=== PATIENT | male | born 1975 | race Caucasian/White ===

== ENCOUNTER → 2018-05-19 17:07 | Outpatient (CLI) | payer OTHER, SELFPAY ==
--- NOTE | 2018-05-19 17:08 | DI.MRI.S_ITS ---
PROCEDURE: MR CERVICAL SPINE WO CON INDICATIONS: OTHER CERVICAL DISC DISPLACEMENT, UNSPECIFIED CERV TECHNIQUE: Noncontrast sagittal T1 spin echo and T2 fast spin echo, sagittal STIR, foraminal oblique sagittal T2 fast spin echo, and axial gradient echo or T2 fast spin echo through the cervical spine. COMPARISON: [facility] Outside Film, RG, SPINE CERVICAL 2 OR 3VW, 09/12/2017, 11:39. FINDINGS: Image quality: Excellent. Alignment and Curvature: There is loss of normal cervical lordosis. There is mild, grade 1 retrolisthesis of C4 on C5, C5 on C6, and C6 on C7. Bone Marrow: Marrow demonstrates normal overall signal. There is moderate reactive signal within the endplates adjacent to the C5-C6 and C6-C7 intervertebral discs. Spinal Cord: Visualized spinal cord has normal size and signal. No cerebellar tonsillar herniation. Paraspinous Soft Tissues: No paravertebral masses. Prevertebral soft tissues are normal in thickness. C2-C3: Congenital canal stenosis. Mild bilateral facet hypertrophy. Mild canal stenosis. Mild left foraminal stenosis. No right foraminal stenosis. C3-C4: Congenital canal stenosis. Mild bilateral facet and uncovertebral hypertrophy. Overall moderate canal stenosis. Mild bilateral foraminal stenosis. C4-C5: Congenital canal stenosis. Mild disc loss and desiccation. Mild diffuse disc bulge. Mild bilateral facet hypertrophy. Overall severe canal stenosis with moderate cord flattening. Mild bilateral foraminal stenosis. C5-C6: Congenital canal stenosis. Moderate disc I. loss and desiccation. Mild diffuse disc bulge with superimposed broad-based left far lateral protrusion. Moderate bilateral facet and uncovertebral hypertrophy. Severe canal stenosis. Moderate cord flattening. Severe bilateral foraminal stenosis with bilateral C6 nerve root flattening. C6-C7: Congenital canal stenosis. Moderate disc height loss and desiccation. Moderate diffuse disc bulge. Mild bilateral facet and uncovertebral hypertrophy. Severe canal stenosis. Moderate cord flattening. Moderate foraminal stenosis bilaterally. C7-T1: Congenital canal stenosis. Overall mild canal stenosis. No foraminal stenosis. IMPRESSION: 1. Diffuse congenital canal stenosis, with superimposed disc and facet disease, as well as uncovertebral hypertrophy. 2. Multilevel canal stenoses, with associated cord flattening at C4-C5, C5-C6, and C6-C7. 3. Multilevel foraminal stenoses, worst at C5-C6 bilaterally, where there is bilateral intraforaminal C6 neural flattening. Recommend correlation with clinical symptoms to ascertain relevance of this finding. Dictated by: Margo Erickson M.D. on 05/20/2018 at 9:24 Approved by: Margo Erickson M.D. on 05/20/2018 at 9:28
== END ==
PROVIDERS: Visit Provider Physical Medicine & Rehabilitation
DX: M50.221 Other cervical disc displacement at C4-C5 level (principal); M48.02 Spinal stenosis, cervical region
CPT/HCPCS: 72141

== ENCOUNTER 2022-05-15 19:43 | Inpatient (IN) | payer OTHER, SELFPAY ==
[2022-05-15] VITALS (13 sets, daily range): BP systolic 138–153; BP diastolic 82–88; PULSE 85–98; RESP 13–43; TEMP 35.7; O2SAT 96–99; BMI 30.5
[2022-05-15] MEDS: EPINEPHrine 1 MG/ML 0.5 MG IM ×2 (20:05→21:19)
[2022-05-15] MEDS: diphenhydrAMINE 50 MG/ML VIAL 25 MG IV (20:06)
[2022-05-15] MEDS: FAMOTIDINE 20 MG/2 ML VIAL IV (20:08)
[2022-05-15] MEDS: DEXAMETHASONE 10 MG/ML VIAL IV (20:08)
--- NOTE | 2022-05-15 20:59 | ED.ALLEREA ---
HPI - Allergic Reaction General Chief complaint: Allergic Reaction Stated complaint: allergic reaction throat is swollen Time Seen by Provider: 05/15/22 19:59 Source: patient Mode of arrival: Ambulatory History of Present Illness HPI narrative: 47-year-old male nonsmoker with history of eosinophilic esophagitis and prior allergic reactions presents with his in the chief complaint of difficulty breathing and a fullness or swelling sensation in his throat for about the past 1/2 hour or so. He denies any exposure to new foods, lotions, since or other. He has no rash. He is nauseated but denies any vomiting and has no abdominal pain or diarrhea. He took no medications prior to coming Related Data Allergies Allergy/AdvReac Type Severity Reaction Status Date / Time No Known Drug Allergies Allergy Verified 05/15/22 20:14 Review of Systems Review of Systems Narrative: GENERAL: Denies chills, fatigue, malaise, fever, sweats. HEENT: See HPI RESPIRATORY: See HPI CARDIOVASCULAR: Denies chest pain, palpitations, orthopnea, edema, GASTROINTESTINAL: Denies nausea, vomiting, abdominal pain, diarrhea, constipation, melena. : Denies dysuria, frequency, incontinence, hematuria, urinary retention. MUSCULOSKELETAL: denies weakness, joint pain, or bony pain SKIN: Denies rash, skin lesions, or other NEUROLOGIC: Denies weakness, headache, numbness, change in speech, confusion, seizures, incoordination. PSYCHIATRIC: No concerning psychosocial issues. 12 point review of systems is negative except for those stated above Patient History Social History Smoking Status: Never smoker Smoking Status: Never smoker alcohol intake frequency: holidays/special occasions only Substance Use Type: does not use Exam Narrative Exam Narrative: GENERAL: [47] year old patient appears stated age. Well-developed patient, in mild distress. Obviously uncomfortable, standing upright and pacing a bit holding an emesis bag HEAD: Atraumatic. Normocephalic. EYES: Pupils equal round and reactive. Extraocular motions intact. No scleral icterus. No injection or drainage. ENT: Nose without bleeding, purulent drainage. Throat without erythema, tonsillar hypertrophy or exudate. Airway patent. NECK: Trachea midline. Non tender CARDIOVASCULAR: Regular rate and rhythm without murmurs, gallops, or rubs. RESPIRATORY: Clear to auscultation. Breath sounds equal bilaterally. No wheezes, rales, or rhonchi. GASTROINTESTINAL: Abdomen soft, non-tender, nondistended. EXTREMITIES: No edema or joint tenderness. BACK: Nontender without deformity or crepitance. No flank tenderness. NEURO: AOx3. SKIN: No rash or erythema of visible areas Initial Vital Signs Initial Vital Signs: Vital Signs Temperature 96.3 F L 05/15/22 19:46 Pulse Rate 98 H 05/15/22 19:46 Respiratory Rate 18 05/15/22 19:46 Blood Pressure 138/84 05/15/22 19:46 Pulse Oximetry 98 05/15/22 19:46 Oxygen Delivery Method 05/15/22 19:46 Course Orders Ordered: ED Orders 05/16/22 00:27 CT soft tissue neck w con Stat 05/16/22 00:37 BMP [Basic Metabolic Panel] Stat CBC Auto Diff [Complete Blood Count AUTO DIFF] Stat 05/16/22 01:52 COVID19 -Nasal RAPID/Pre-Proc Stat Famotidine (Famotidine 20 Mg/2 Ml Vial) 20 mg IV NOW DENISE Last Admin: 05/15/22 20:08 Dose: 20 mg Documented By: ESEQUIEL Discontinued Medications Dexamethasone (Dexamethasone 10 Mg/Ml Vial) 10 mg IV NOW ONE Stop: 05/15/22 20:00 Last Admin: 05/15/22 20:08 Dose: 10 mg Documented By: ESEQUIEL Diphenhydramine HCl (Diphenhydramine 50 Mg/Ml Vial) 25 mg IV NOW ONE Stop: 05/15/22 20:00 Last Admin: 05/15/22 20:06 Dose: 25 mg Documented By: ESEQUIEL Epinephrine HCl (Epinephrine 1 Mg/Ml) 0.5 mg IM NOW ONE Stop: 05/15/22 20:00 Last Admin: 05/15/22 20:05 Dose: 0.5 mg Documented By: ESEQUIEL Epinephrine HCl (Epinephrine 1 Mg/Ml) 0.5 mg IM NOW ONE Stop: 05/15/22 21:12 Last Admin: 05/15/22 21:19 Dose: 0.5 mg Documented By: ESEQUIEL Ondansetron HCl (Ondansetron 4 Mg/2 Ml Inj) 4 mg IV NOW ONE Stop: 05/15/22 20:58 Last Admin: 05/15/22 21:01 Dose: 4 mg Documented By: ESEQUIEL Reevaluation(s) Reevaluation #1: improved, but still uncomfortable Time: 21:02 Reevaluation #2: After all above-stated therapies patient still unable to get any liquids down, attempts made and within a few minutes it comes back up. He continues to deny any likely esophageal foreign body Consultations Consultation #1: Dr. Mcknight Vital Signs Vital signs: Vital Signs - 8 hr 05/15/22 19:46 05/15/22 20:14 05/15/22 20:29 Temperature 96.3 F L Pulse Rate 98 H 91 H 85 Respiratory Rate 18 16 16 Blood Pressure 138/84 153/82 H Pulse Oximetry 98 97 96 Oxygen Delivery Method Room Air Room Air Room Air 05/15/22 23:40 05/16/22 00:12 Temperature Pulse Rate 92 H 91 H Respiratory Rate 16 16 Blood Pressure 149/88 H 153/82 H Pulse Oximetry 97 98 Oxygen Delivery Method Room Air Room Air MDM - Allergic Reaction Lab Data Result diagrams: 05/16/22 00:37 05/16/22 00:37 Labs: Lab Results 05/16/22 05/16/22 05/16/22 Range/Units 00:37 00:37 02:03 WBC 9.3 (4.5-11.0) X10^3/uL RBC 4.66 (4.5-5.9) X10^6/uL Hgb 14.1 (13.5-17.5) g/dL Hct 41.5 (41-53) % MCV 89.1 (80-100) fL MCH 30.2 (26-34) PG MCHC 33.9 (30-36) % RDW 13.1 (11.6-14.8) % Plt Count 237 (150-400) X10^3/uL Neut % (Auto) 95.1 H (50-75) % Lymph % (Auto) 3.7 L (25-40) % [place] % (Auto) 0.3 L (3-14) % Eos % (Auto) 0.1 L (2-4) % Baso % (Auto) 0.8 (0-2) % Neut # (Auto) 8800 H (4430-0605) /uL Lymph # (Auto) 300 L (1468-0844) /uL [place] # (Auto) 0 (0-900) /uL Eos # (Auto) 0 (0-450) /uL Baso # (Auto) 100 (0-100) /uL Sodium 141 (137-145) mmol/L Potassium 3.9 (3.4-5.1) mmol/L Chloride 110 H (98-107) mmol/L Carbon Dioxide 23 (22-32) mmol/L BUN 12 (9-20) mg/dL Creatinine 0.84 (0.66-1.25) mg/dL Estimated GFR > 60 (>60) mL/min BUN/Creatinine Ratio 14.3 (6-22) Glucose 143 H (70-100) mg/dL Calcium 7.8 L (8.4-10.2) mg/dL SARS-CoV-2 (PCR) Negative (Negative) Imaging Data CT Soft Tissue Neck: Radiologist's Impression: Close Soft Tissue Neck CT (Signed) Mani Martini - 05/16/22 [place] [address] CT Scan Report Signed Patient: Kashif Smith MR#: [id number] : 1975 Acct:[id number] Age/Sex: 47 / M Date of Service: 05/16/22 Loc: ED Accession Number: [id number] ?? Procedure: CT soft tissue neck w con Ordering Provider: Bereket Asif D.O. PROCEDURE:? CT SOFT TISSUE NECK W CON ? INDICATIONS:? unable to swallow ? TECHNIQUE:? After the administration of intravenous contrast, 3.0 mm axial sections acquired from the sella to the aortic arch.? Additional oblique axial 3.0 mm sections acquired through the pharynx.? 3 mm thick coronal and sagittal reformats were generated.? For radiation dose reduction, the following was used:? automated exposure control.? ? COMPARISON:? [facility], MR, MR CERVICAL SPINE WO CON, 05/19/2018, 17:15. ? FINDINGS:? Image quality:? Excellent.? ? Lymph nodes:? No enlarged lymph nodes seen throughout the neck.? ? Vessels:? Visualized vasculature appears patent.? ? Neck spaces:? The oropharynx, nasopharynx, and pharynx demonstrate no mucosal mass lesions.? There is mild concentric mucosal thickening within the oropharynx.? There is slight enlargement of the tonsils and adenoids.? No discrete abscess collection.? The vocal cords, false vocal cords, pyriform sinuses, epiglottis, vallecula, and tongue base all appear normal.? Extramucosal spaces appear unremarkable.? ? Glands:? The parotid and submandibular glands appear normal.? Thyroid gland demonstrates no discrete nodules. ? Miscellaneous:? Visualized brain and orbits appear normal.? Lung apices appear clear.? Superficial soft tissues appear normal. ? Bones:? No suspicious bony lesions.? There is straightening of the cervical lordosis.? Mild to moderate degenerative disc disease demonstrated within the lower cervical spine.? Visualized sinuses and mastoids appear unremarkable.? ? ? IMPRESSION:? ? 1. Mild concentric mucosal thickening within the oropharynx without a discrete abscess collection or mass. ? ? ? Dictated by: Mani Martini M.D. on 05/16/2022 at 1:38 ? ? Approved by: Mani Martini M.D. on 05/16/2022 at 1:42 ? MDM Narrative Medical decision making narrative: Despite above stated therapies patient is still unable to tolerate any oral hydration attempts at even small sips of water come back up. He is unable to be discharged given the circumstances and will require hospitalization for further evaluation and treatment. Discharge Plan Departure Patient Disposition: Admitted as Observation Clinical Impression: Esophagitis Admit Date/Time: 05/16/22 02:19 Admit Provider: Dasha Tobias
[2022-05-15] MEDS: ONDANSETRON 4 MG/2 ML INJ IV (21:01)
[2022-05-15] MEDS: BUDESONIDE 0.5 MG/2 ML NEB 2 MG INH (22:59)
[2022-05-15] MEDS: BUDESONIDE 0.5 MG/2 ML NEB 1 MG INH (22:59)
[2022-05-16] VITALS (14 sets, daily range): BP systolic 116–153; BP diastolic 59–82; PULSE 79–97; RESP 10–31; TEMP 36.6–36.9; O2SAT 94–98; BMI 29.0
--- NOTE | 2022-05-16 00:27 | DI.CT.S_ITS ---
PROCEDURE: CT SOFT TISSUE NECK W CON INDICATIONS: unable to swallow TECHNIQUE: After the administration of intravenous contrast, 3.0 mm axial sections acquired from the sella to the aortic arch. Additional oblique axial 3.0 mm sections acquired through the pharynx. 3 mm thick coronal and sagittal reformats were generated. For radiation dose reduction, the following was used: automated exposure control. COMPARISON: [facility], MR, MR CERVICAL SPINE WO CON, 05/19/2018, 17:15. FINDINGS: Image quality: Excellent. Lymph nodes: No enlarged lymph nodes seen throughout the neck. Vessels: Visualized vasculature appears patent. Neck spaces: The oropharynx, nasopharynx, and pharynx demonstrate no mucosal mass lesions. There is mild concentric mucosal thickening within the oropharynx. There is slight enlargement of the tonsils and adenoids. No discrete abscess collection. The vocal cords, false vocal cords, pyriform sinuses, epiglottis, vallecula, and tongue base all appear normal. Extramucosal spaces appear unremarkable. Glands: The parotid and submandibular glands appear normal. Thyroid gland demonstrates no discrete nodules. Miscellaneous: Visualized brain and orbits appear normal. Lung apices appear clear. Superficial soft tissues appear normal. Bones: No suspicious bony lesions. There is straightening of the cervical lordosis. Mild to moderate degenerative disc disease demonstrated within the lower cervical spine. Visualized sinuses and mastoids appear unremarkable. IMPRESSION: 1. Mild concentric mucosal thickening within the oropharynx without a discrete abscess collection or mass. Dictated by: Mani Martini M.D. on 05/16/2022 at 1:38 Approved by: Mani Martini M.D. on 05/16/2022 at 1:42
[2022-05-16 00:47] LABS: Add Manual Diff / Slide Review NO; Basophils Absolute Auto 100 /uL (0-100); Basophils Percent Auto 0.8 % (0-2); Eosinophils Absolute Auto 0 /uL (0-450); Eosinophils Percent Auto 0.1 % (2-4); Hematocrit 41.5 % (41-53); Hemoglobin 14.1 g/dL (13.5-17.5); Lymphocytes Absolute Auto 300 /uL (1100-4500); Lymphocytes Percent Auto 3.7 % (25-40); Mean Corpuscular HGB Conc 33.9 % (30-36); Mean Corpuscular Hemoglobin 30.2 PG (26-34); Mean Corpuscular Volume 89.1 fL (80-100); Monocytes Absolute Auto 0 /uL (0-900); Monocytes Percent Auto 0.3 % (3-14); Neutrophils Absolute Auto 8800 /uL (1500-7000); Neutrophils Percent Auto 95.1 % (50-75); Platelet Count 237 X10^3/uL (150-400); Red Blood Cell Count 4.66 X10^6/uL (4.5-5.9); Red Cell Distribution Width 13.1 % (11.6-14.8); White Blood Cell Count 9.3 X10^3/uL (4.5-11.0)
[2022-05-16 00:56] LABS: BUN Creatinine Ratio 14.3 (6-22); Blood Urea Nitrogen 12 mg/dL (9-20); Calcium 7.8 mg/dL (8.4-10.2); Carbon Dioxide 23 mmol/L (22-32); Chloride 110 mmol/L (98-107); Estimated Glomerular Filt Rate > 60 mL/min (>60); Glucose 143 mg/dL (70-100); HEMOLYSIS < 15 (0-50); Potassium 3.9 mmol/L (3.4-5.1); Sodium 141 mmol/L (137-145)
[2022-05-16 02:28] LABS: COVID19 -Nasal RAPID Negative (Negative)
--- NOTE | 2022-05-16 02:47 | PM.HP.1 ---
History of Present Illness History of Present Illness Date Patient Seen: 05/16/22 Time Patient Seen: 02:47 Chief complaint: allergic reaction throat is swollen Patient History Family & Social History Safety & Behavioral: Feels Safe in Current Yes Environment Been Physically Hurt or No Threatened By a Person Tobacco & Substance use: Smoking Status Never smoker alcohol intake frequency holiday/special occasion Substance Use Type does not use Meds Home Medications and Allergies Allergies Allergy/AdvReac Type Severity Reaction Status Date / Time No Known Drug Allergies Allergy Verified 05/15/22 20:14 Exam Vital Signs (past 8 hours): - 05/15/22 19:46 05/15/22 20:14 05/15/22 20:29 Temperature 96.3 F L Pulse Rate 98 H 91 H 85 Respiratory Rate 18 16 16 Blood Pressure 138/84 153/82 H Pulse Oximetry 98 97 96 Oxygen Delivery Method Room Air Room Air Room Air 05/15/22 23:40 05/16/22 00:12 Temperature Pulse Rate 92 H 91 H Respiratory Rate 16 16 Blood Pressure 149/88 H 153/82 H Pulse Oximetry 97 98 Oxygen Delivery Method Room Air Room Air Oxygen Delivery Method Room Air Objective Labs Result Diagrams: 05/16/22 00:37 05/16/22 00:37 Labs: Laboratory Results - last 24 hr 05/16/22 05/16/22 05/16/22 00:37 00:37 02:03 WBC 9.3 RBC 4.66 Hgb 14.1 Hct 41.5 MCV 89.1 MCH 30.2 MCHC 33.9 RDW 13.1 Plt Count 237 Neut % (Auto) 95.1 H Lymph % (Auto) 3.7 L [place] % (Auto) 0.3 L Eos % (Auto) 0.1 L Baso % (Auto) 0.8 Neut # (Auto) 8800 H Lymph # (Auto) 300 L [place] # (Auto) 0 Eos # (Auto) 0 Baso # (Auto) 100 Sodium 141 Potassium 3.9 Chloride 110 H Carbon Dioxide 23 BUN 12 Creatinine 0.84 Estimated GFR > 60 BUN/Creatinine Ratio 14.3 Glucose 143 H Calcium 7.8 L SARS-CoV-2 (PCR) Negative Assessment & Plan Time Spent With Patient Critical Care time: I spent a total of [] minutes of critical care time on this patient's care today; this time is exclusive of procedural time.
[2022-05-16] MEDS: diazePAM 10 MG/2 ML SYRINGE 2 MG IV (02:58)
--- NOTE | 2022-05-16 03:10 | P.HP_ITS ---
History of Present Illness History of Present Illness Date Patient Seen: 05/16/22 Time Patient Seen: 03:10 Chief complaint: Throat swelling thought to be EoE Narrative: Kashif Smith is a 47-year-old male with no particular past medical history aside from an incident 5 years ago where he developed eosinophilic esophagitis presented to the emergency department with increased difficulty swallowing and breathing. He states that it is migrated from the base of his throat now down to the middle of his chest. He used to take omeprazole, but discontinued it 6 months ago. He has been unable to swallow anything including his own secretions and failed a trial of oral budesonide. In the past when it happened approximately 5 years ago it had lasted for about half an hour and then would go away. When it started today he states it has been going on now for almost 5 hours and does not seem to be abating at all. He denies any nausea, fever or chills, sore throat, chest pain, abdominal pain, dysuria, diarrhea or constipation. He was administered several doses of epinephrine and 1 dose of dexamethasone and IV diphenhydramine with not much effect. Soft tissue CT of the neck did report mild concentric mucosal thickening within the oropharynx without any discrete abscess or mass. He is afebrile blood pressure 153/82 heart rate 91 respiratory rate 16 oxygen saturation 98% on room air weighs 102 kg with a BMI of 30.5. CBC is unremarkable, eosinophil count percentage are low chloride is 110 glucose 143 calcium 7.8 and COVID-19 PCR is negative. Patient History Medical History Esophagitis Family & Social History Family History Mother Osteoporosis Father Congestive heart failure COPD (chronic obstructive pulmonary disease) Atrial fibrillation, chronic Status cardiac pacemaker Safety & Behavioral: Feels Safe in Current Yes Environment Been Physically Hurt or No Threatened By a Person Tobacco & Substance use: Smoking Status Never smoker alcohol intake frequency holiday/special occasion Substance Use Type does not use Meds Home Medications and Allergies Allergies Allergy/AdvReac Type Severity Reaction Status Date / Time No Known Drug Allergies Allergy Verified 05/15/22 20:14 Review of Systems Review of Systems ROS: Yes All systems reviewed with the patient and are negative except as otherwise documented Exam Vital Signs (past 8 hours): - 05/15/22 19:46 05/15/22 20:14 05/15/22 20:29 Temperature 96.3 F L Pulse Rate 98 H 91 H 85 Respiratory Rate 18 16 16 Blood Pressure 138/84 153/82 H Pulse Oximetry 98 97 96 Oxygen Delivery Method Room Air Room Air Room Air 05/15/22 23:40 05/16/22 00:12 Temperature Pulse Rate 92 H 91 H Respiratory Rate 16 16 Blood Pressure 149/88 H 153/82 H Pulse Oximetry 97 98 Oxygen Delivery Method Room Air Room Air Oxygen Delivery Method Room Air Narrative Exam Narrative: Gen: Alert, oriented, well-developed 47 y.o. male, mildly distressed and needing to vomit his secretions HEENT: normocephalic, atraumatic, conjunctiva clear, sclera non-icteric, oral mucosa pink and moist Neck: supple, full ROM, no JVD, trachea is midline Resp: Lungs CTA, non-labored breathing CV: RRR, no murmur or rubs Abd: soft, non-tender, normoactive BTs Skin: no lesions or rashes, dry and intact Neuro: Alert and oriented X 4 w/no focal deficits. Speech clear and coherent. Extremities: moves all 4 extremities, is ambulatory, negative Radha?s sign Psyche: normal mood and affect. Objective Labs Result Diagrams: 05/16/22 00:37 05/16/22 00:37 Labs: Laboratory Results - last 24 hr 05/16/22 05/16/22 05/16/22 00:37 00:37 02:03 WBC 9.3 RBC 4.66 Hgb 14.1 Hct 41.5 MCV 89.1 MCH 30.2 MCHC 33.9 RDW 13.1 Plt Count 237 Neut % (Auto) 95.1 H Lymph % (Auto) 3.7 L [place] % (Auto) 0.3 L Eos % (Auto) 0.1 L Baso % (Auto) 0.8 Neut # (Auto) 8800 H Lymph # (Auto) 300 L [place] # (Auto) 0 Eos # (Auto) 0 Baso # (Auto) 100 Sodium 141 Potassium 3.9 Chloride 110 H Carbon Dioxide 23 BUN 12 Creatinine 0.84 Estimated GFR > 60 BUN/Creatinine Ratio 14.3 Glucose 143 H Calcium 7.8 L SARS-CoV-2 (PCR) Negative Assessment & Plan Assessment & Plan narrative: Kashif Smith is placed into observation and will undergo an EGD to either d ilate the thickening and to obtain a biopsy. Acute eosinophilic esophagitis, present on admission * He will be started on IV protonix 40 mg daily * Was administered IV diazapam 2 mg, will administer 5 mg, initially he fell asleep, but awoke to expectorate and stated was not feeling any better. * Dr. Mcknight, General Surgery to see in the am. VTE Prophylaxis: Wells risk score 0 patient is pacing and active, will hold on VTE prophylaxis until he is recovered from the PACU Patient is placed into observation as his stay is not expected to exceed 2 midnights. FEN: IV fluids: saline lock, diet: NPO, labs: CBC, C/BMP, liver enzymes, Mag, PT/INR Consultants Dr. Mcknight, General Surgery care and involvement in the patient?s care is appreciated. Dispo: hopefully d/c to home Code status: Full code, , Consuelo is his surrogate [X] I have utilized all available immediate resources to obtain, update, or review of the patient's current medications VTE Deep Vein Thrombosis/Pulmonary Embolism Present on Admission: No MIPS - Admit I confirm the patient?s Advance Care Plan is present, Code status is documented, Surrogate decision maker is in patient?s record: Yes MIPS - DC The patient has current or prior documentation of left ventricular ejection fraction (LVEF) less than 40%, or moderate or severely depressed left ventricular systolic function.: No COVID-19 COVID-19 status: Negative Result date/Date tested (Pos, Neg/Pending): 05/16/22
[2022-05-16] MEDS: diazePAM 10 MG/2 ML SYRINGE 5 MG IV (03:41)
--- NOTE | 2022-05-16 05:28 | PC.NURSE ---
0500 Patient laying on right side, resting with eyes closed. Respirations equal, regular and unlabored. No acute distress noted.
[2022-05-16] MEDS: ONDANSETRON 4 MG/2 ML INJ IV (06:57)
--- NOTE | 2022-05-16 07:37 | PC.NURSE ---
Patient up at garbage can in room, dry heaving. It seems cyclical Patient states that the valium may have taken the edge off of things but doesn't believe it made a huge difference.
--- NOTE | 2022-05-16 07:43 | PC.NURSE ---
At this time patient is able to manage some secretions but continues to dry heave. Speaking in full sentences.
[2022-05-16] MEDS: PANTOPRAZOLE 40 MG VIAL IV (08:49)
--- NOTE | 2022-05-16 09:35 | PM.CALLCOV.1 ---
Call Coverage Note Note Date of Patient Contact: 05/16/22 Narrative of Care Provided: discussed with Dr. Asif and CT scan reviewed. Given the swelling is Oral pharynx and eosenophils are normal, he would be better served by ENT. Please re consult general surgery if needed.
--- NOTE | 2022-05-16 09:40 | PC.NURSE ---
Spoke w/ Dr. Hernandez who will order fluids and medication for secretions. Asked that we contact Dr. Mcknight to see when she was coming to see pt.
[2022-05-16] MEDS: dilTIAZem 5 MG/ML SDV 10 MG IV (10:28)
[2022-05-16] MEDS: SCOPOLAMINE 1 PATCH TOP (10:30)
[2022-05-16] MEDS: LACTATED RINGERS 1,000 ML 100 ML IV ×2 (11:00→22:48)
[2022-05-16] MEDS: METOCLOPRAMIDE 10 MG/2 ML INJ IV (11:12)
--- NOTE | 2022-05-16 11:26 | PC.NURSE ---
Marce from speech therapy called, patient not able to tolerate secretions well enough at this time to complete a barium study. Marce will check back for re evaluation of patient for study
--- NOTE | 2022-05-16 11:30 | SLP.IPNOTE ---
Notified by JAE zaratef an order for Modified Barium Swallow for thias pt. Pt currently unable to tolerate secretions with intermittent gagging. If patient unable to handle secretions, barium will be equally as difficult. Will hold on MBS until reduction in oropharyngeal swelling to enable swallowing barium.
--- NOTE | 2022-05-16 13:19 | SLP.IPNOTE ---
Addendum entered and electronically signed by Jon Gómez 05/16/22 13:23: Called DI about ability to do MBS on holiday. Was told there would be no one available for MBS through Saturday. Original Note: Met with pt in his room. Explained the the order for MBS. pt noted he had had an MBB before. I asked if he thought he could swallow the barium, he said No and refused. Attempted to try ice chip, but pt was using emeisis bag and refused ice chip. Will continue to try to see pt.
--- NOTE | 2022-05-16 14:15 | DI.CT.S_ITS ---
PROCEDURE: CT CHEST WO CON INDICATIONS: dysphagia, vomiting with any po intake, assess esophagus TECHNIQUE: Noncontrast 5 mm thick sections acquired from the pulmonary apices to the posterior costophrenic angles. 1 mm lung window, 5 mm thick coronal and sagittal and 7 mm axial MIP reformats were then acquired. For radiation dose reduction, the following was used: automated exposure control, adjustment of mA and/or kV according to patient size. COMPARISON: [facility], CT, CT SOFT TISSUE NECK W CON, 05/16/2022, 0:41. FINDINGS: Image quality: Good. Lungs and pleura: No acute air space opacities. Calcified granulomas. No pleural effusions or pneumothorax. Central and peripheral airways are patent and normal in caliber. Mediastinum: Heart size is normal. No pericardial effusion. No mediastinal adenopathy by size criteria. Calcified mediastinal lymph node. Calcified right hilar lymph nodes. Thoracic aorta and central pulmonary arteries are normal in size. No retroesophageal variant vessels. Mid and lower esophagus is mildly dilated. Air-fluid level in the mid and distal esophagus. No diverticulum. Possible tiny hiatal hernia. Bones and chest wall: No suspicious bony lesions. No vertebral body compression fractures. No axillary or supraclavicular adenopathy by size criteria. Thyroid gland is unremarkable. Abdomen: Visualized upper abdominal solid organs and bowel loops appear normal in the absence of contrast. Calcified granulomas in the spleen. IMPRESSION: 1. Mid and distal esophagus is mildly dilated with air-fluid level. This could be seen in distal esophageal stricture or achalasia. Consider endoscopy and/or esophagram for further evaluation. 2. Lungs are clear. 3. Calcified mediastinal and right hilar lymph nodes. Dictated by: Rad Ferrari M.D. on 05/16/2022 at 15:12 Approved by: Rad Ferrari M.D. on 05/16/2022 at 15:25
[2022-05-16] MEDS: HYDROMORPHONE 0.5 MG INJ IV ×2 (14:51→18:49)
[2022-05-17] MEDS: HYDROMORPHONE 0.5 MG INJ IV (05:49)
[2022-05-17 06:34] VITALS: BP 111/71; PULSE 73; RESP 18; TEMP 36.6; O2SAT 96
[2022-05-17 07:55] VITALS: BP 109/59; PULSE 56
--- NOTE | 2022-05-17 08:09 | PM.DS.1 ---
History of Present Illness History of Present Illness Date Patient Seen: 05/17/22 Time Patient Seen: 07:00 Chief complaint: Throat swelling thought to be EoE Narrative: Kashif Smith is a 47-year-old male with no particular past medical history aside from an incident 5 years ago where he developed eosinophilic esophagitis presented to the emergency department with increased difficulty swallowing and breathing.? He states that it is migrated from the base of his throat now down to the middle of his chest. He used to take omeprazole, but discontinued it 6 months ago. He has been unable to swallow anything including his own secretions and failed a trial of oral budesonide.? In the past when it happened approximately 5 years ago it had lasted for about half an hour and then would go away.? When it started today he states it has been going on now for almost 5 hours and does not seem to be abating at all.? He denies any nausea, fever or chills, sore throat, chest pain, abdominal pain, dysuria, diarrhea or constipation. He was administered several doses of epinephrine and 1 dose of dexamethasone and IV diphenhydramine with not much effect.? Soft tissue CT of the neck did report mild concentric mucosal thickening within the oropharynx without any discrete abscess or mass.? He is afebrile blood pressure 153/82 heart rate 91 respiratory rate 16 oxygen saturation 98% on room air weighs 102 kg with a BMI of 30.5.? CBC is unremarkable, eosinophil count percentage are low chloride is 110 glucose 143 calcium 7.8 and COVID-19 PCR is negative. Discharge Providers Provider Date of admission: 05/16/22 02:19 Discharge Date: 05/17/22 Consults: 05/16/22 02:57 Consult to Physician Routine Comment: Consulting Provider: Giuliana Mcknight Reason for consultation: EGD, throat swelling Has provider been notified: Yes Discharge provider: Jason Hernandez DO Summary Hospital Course Discharge Diagnosis: Acute dysphagia due to presumed esophageal stricture in setting of eosinophilic esophagitis, present on admission Hospital Course: Admitted for acute dysphagia in setting of chronic EOE and stopping his omeprazole 6mo ago. Patient unable to tolerate any po intake without regurgitation of contents. Also regugitating saliva and oral secretions. Initially thought to be oropharyngeal due to patient noting throat fullness and swelling. CT soft tissue neck showed mild mucosal thickening of oropharynx. Gen surg was contacted who recommended ENT evaluation. ENT called who recommended barium swallow, however patient unable to tolerate po intake. Patient's symptoms began to migrate down to chest with a tight cramping feeling of the epigastric area and nonstop wretching/vomiting of any intake. Was given IV PPI, decadron, inhaled fluticasone, IV diltiazem and epinephrine without improvement. [facility] GI consulted who recommended CT chest which showed likely esophageal stricture with dilated esophagus and distal air-fluid level. Endoscopy was recommended, however patient began to improve and able to tolerate water and ice chips. He then trialed apple sauce and able to tolerate this. Patient preferred to delay EGD to be done by his GI doctor at [facility] as an outpatient, which gen surg felt was reasonable. He was discharged on daily oral protonix 40mg and decadron 6mg po PRN if he developed dysphagia again. Told to limit po intake to soft foods only. He will f/u outpatient [facility] for EGD at [facility] hopefully with Dr. Segundo BRADFORD. Time Spent with Patient Time spent: Greater than 30 minutes Exam Vital Signs (past 8 hours): - 05/17/22 06:34 05/17/22 07:55 Temperature 97.8 F Pulse Rate 73 56 L Respiratory Rate 18 Blood Pressure 111/71 109/59 L Pulse Oximetry 96 Oxygen Flow Rate 0 Oxygen Delivery Method Room Air Oxygen Flow Rate 0 Narrative Exam Narrative: Gen: Alert, oriented, well-developed 47 y.o. male, NAD HEENT: normocephalic, atraumatic, conjunctiva clear, sclera non-icteric, oral mucosa pink and moist Neck: supple, full ROM, no JVD, trachea is midline Resp: Lungs CTA, non-labored breathing CV: RRR, no murmur or rubs Abd: soft, non-tender, normoactive BTs Skin: no lesions or rashes, dry and intact Neuro: Alert and oriented X 4 w/no focal deficits. Speech clear and coherent. Extremities: moves all 4 extremities, is ambulatory, negative Radha?s sign Psyche: normal mood and affect. Objective Labs Result Diagrams: 05/17/22 07:59 05/17/22 07:59 [facility] Medical History Esophagitis Family History Mother Osteoporosis Father Congestive heart failure COPD (chronic obstructive pulmonary disease) Atrial fibrillation, chronic Status cardiac pacemaker Social History household members: spouse Smoking Status: Never smoker alcohol intake: current Discharge Plan Discharge Plan Patient Disposition: Home Provider Discharge Comment: You were admitted for wretching and vomiting and found to have a narrowing at the end of your esophagus where it meets the stomach, which is likely a result of irritation from your EOE. You were able to tolerate soft foods so an endoscopy was safe to delay until you can see your GI as an outpatient. I've sent a steroid pill and stronger form of omeprazole to take until then. I would avoid solid foods until you can get the scope done, but soft foods should be fine. Discharge orders & Medications Prescriptions: New pantoprazole [Protonix] 40 mg tablet,delayed release (DR/EC) 40 mg PO DAILY Qty: 30 0RF dexamethasone [Decadron] 6 mg tablet 6 mg PO DAILY PRN (Reason: dysphagia) Qty: 30 0RF Continued celecoxib [Celebrex] 100 mg Capsule 200 mg PO BID PRN (Reason: cervical pain) Discontinued omeprazole 40 mg Capsule,Delayed Release(Dr/Ec) 40 mg PO DAILY Label Comments: stopped taking 6 mo ago. Follow up/Referrals: Zander Raymond MD [Non-Staff] - 1 Week Visit Report/Discharge Packet Instructions: DI for Esophageal Dysphagia Discharge Data Attending Provider: Dasha Tobias VTE Deep Vein Thrombosis/Pulmonary Embolism Present on Admission: No
[2022-05-17 08:20] LABS: Add Manual Diff / Slide Review NO; Basophils Absolute Auto 0 /uL (0-100); Basophils Percent Auto 0.3 % (0-2); Eosinophils Absolute Auto 100 /uL (0-450); Eosinophils Percent Auto 1.1 % (2-4); Hematocrit 40.2 % (41-53); Hemoglobin 13.8 g/dL (13.5-17.5); Lymphocytes Absolute Auto 2300 /uL (1100-4500); Lymphocytes Percent Auto 31.7 % (25-40); Mean Corpuscular HGB Conc 34.3 % (30-36); Mean Corpuscular Hemoglobin 30.5 PG (26-34); Mean Corpuscular Volume 88.9 fL (80-100); Monocytes Absolute Auto 500 /uL (0-900); Monocytes Percent Auto 6.8 % (3-14); Neutrophils Absolute Auto 4400 /uL (1500-7000); Neutrophils Percent Auto 60.1 % (50-75); Platelet Count 227 X10^3/uL (150-400); Red Blood Cell Count 4.52 X10^6/uL (4.5-5.9); Red Cell Distribution Width 13.3 % (11.6-14.8); White Blood Cell Count 7.4 X10^3/uL (4.5-11.0)
[2022-05-17 08:34] LABS: Alanine Aminotransferase 29 IU/L (<50); Albumin 3.8 g/dL (3.5-5.0); Albumin Globulin Ratio 1.3 (1.0-2.8); Alkaline Phosphatase 41 U/L (38-126); Aspartate Aminotransferase 35 IU/L (17-59); Bilirubin Total 0.9 mg/dL (0.2-1.3); Blood Urea Nitrogen 18 mg/dL (9-20); Calcium 8.3 mg/dL (8.4-10.2); Carbon Dioxide 30 mmol/L (22-32); Chloride 104 mmol/L (98-107); Estimated Glomerular Filt Rate > 60 mL/min (>60); Globulin 2.9 g/dL (1.7-4.1); Glucose 101 mg/dL (70-100); HEMOLYSIS < 15 (0-50); Potassium 4.2 mmol/L (3.4-5.1); Sodium 138 mmol/L (137-145); Total Protein 6.7 g/dL (6.3-8.2)
[2022-05-17] MEDS: LACTATED RINGERS 1,000 ML 100 ML IV (08:39)
[2022-05-17] MEDS: PANTOPRAZOLE 40 MG VIAL IV (10:47)
--- NOTE | 2022-05-17 10:52 | SLP.IPNOTE ---
Discussed pt status with MD. Pt's s/sx are esophageal. Will d/c MBS order at this dime
--- NOTE | 2022-05-17 11:22 | P.CALLCOV_ITS ---
Call Coverage Note Note Date of Patient Contact: 05/17/22 Time of Patient Contact: 11:22 Narrative of Care Provided: Patient seen and examined. 47-year-old male history of eosinophilic esophagitis who was admitted with dysphagia. Dysphagia is resolving is now tolerating full liquids. 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 No indication for emergent EGD were dilation at this time.
--- NOTE | 2022-05-17 11:35 | CM.DANOTE ---
DCP: Case received, EMR reviewed and met with patient. Introduced self and role. Was able to complete DCP assessment based upon information currently available. Patient is a 47 year old male who admitted yesterday morning to the care of the hospitalist team. PCP: [facility] provider. Payer: confirmed: Natalio Ibarra. Patient came to the hospital via private vehicle secondary to having difficulty breathing and a fullness or swelling sensation in his throat for the past half hour. Patient has history of eosinophilic esophagitis. He was unable to get any liquids down, and if attempted, would come back up. Patient was admitted with acute eosinophilic esophagitis. Hospitalist consulted with surgery for possible EGD, but was referred to ENT. Hospitalist did order CT which noted Mild and distal esophagus mildly dilated in distal esophageal stricture. Met with patient in his room. He is alert and oriented, sitting up in bed. He is independent, and resides here in [place] with spouse, Consuelo. He is retired [employer]. He indicated, his symptoms were resolving, and trying some applesauce. There is an updated note from Dr. Cheek indicating that dysphagia is resolving, and now tolerating full liquids. P: DCP to continue to follow. Plan is home when stable, and will be following up with GI provider. Selam Joyner RN/Economics Department Chair Discharge Planning/Care Management CM Discharge Assessment Start: 05/17/22 11:33 Freq: Status: Active Protocol: Document 05/17/22 11:33 (Rec: 05/17/22 11:35 [id number]) Discharge Planning Assessment Assigned Wheel Roller Selam Joyner RN/Economics Department Chair Advance Directives? No History Provided By Patient,Medical Record Prior Living Arrangements House Household Members spouse Type of transporation used prior to Drives own vehicle admit Independent with ADL's Yes Is patient alert and oriented? Yes Caregiver for Another No Barriers to Discharge No Discharge Plan Home Transportation Arrangement Spouse or self Referrals Initiated None needed Whiteboard Updated in Patient Room with Yes name and ext. # of Wheel Roller Review Status In Process Next Review Type Continued Stay Review
--- NOTE | 2022-05-17 12:29 | PC.NURSE ---
Pt dressed and ready for d/c home to be transported via pov by . Pt denies having medications held at the pharmacy here and denies having items held in the safe. Pt IV removed and no tele. Discussed d/c instructions with pt and and answered questions. Provided patient with education about esophageal dysphagia and stroke s/s. Pt taken out via wheel chair by HYGI[employer] ASSISTANT with all belongings.
== END 2022-05-17 12:05 | disposition home or self-care (01) | DRG 392 ==
LOC: ED 23:33 → AC 05-16 02:20
PROVIDERS: Admitting Provider Nurse Practitioner Family; Emergency Provider Emergency Medicine; Visit Provider Nurse Practitioner Family
DX: K20.0 Eosinophilic esophagitis (principal); M54.2 Cervicalgia; Z20.822 Contact with and (suspected) exposure to COVID-19
CPT/HCPCS: 36415; 70491; 71250; 80048; 80053; 85025; 87635; 96372; 96374; 96375; 96376; 99284; C9803; G0378; C9113; J0171; J1100; J1170; J1200; J2405; J2765; J3360; Q9967